=== PATIENT | male | born 2000 | race Two or more races ===

== ENCOUNTER 2024-10-03 23:43 | Emergency (ER) | payer BC ==
[~2024-10-03] VITALS: Ht 182.9 cm; Wt 74.8 kg
[2024-10-04] MEDS ORDERED: TDAP [DIPH/PERTUSSIS/TET] 0.5 ML VIAL IM ONE (01:07)
[2024-10-04] MEDS: TDAP [DIPH/PERTUSSIS/TET] 0.5 ML VIAL IM ONE (01:09)
[2024-10-04 02:02] VITALS: BP 119/65; TEMP 98.2; O2SAT 53
== END 2024-10-04 02:03 | disposition home or self-care (01) ==
LOC: ER 23:50
DX: S01.81XA Laceration without foreign body of other part of head, initial encounter (principal); J45.909 Unspecified asthma, uncomplicated; W22.8XXA Striking against or struck by other objects, initial encounter; Y93.89 Activity, other specified; Y92.89 Other specified places as the place of occurrence of the external cause; Y99.8 Other external cause status
CPT/HCPCS: 70450-TC; 90715